=== PATIENT | female | born 1995 | race Caucasian/White ===

== ENCOUNTER 2018-08-27 20:18 | Emergency (ER) | payer MEDICAID ==
[~2018-08-27] VITALS: Ht 165.1 cm; Wt 58.1 kg
[2018-08-27 20:23] VITALS: Ht 165.1 cm; Wt 58.1 kg
[2018-08-27 22:41] VITALS: BP 99/59
== END 2018-08-27 22:41 | disposition home or self-care (01) ==
LOC: ED 20:18
DX: H83.09 Labyrinthitis, unspecified ear (principal); B34.9 Viral infection, unspecified
CPT/HCPCS: J1885; J8597

== ENCOUNTER 2019-05-17 13:12 | Emergency (ER) | payer OTHER, MEDICAID ==
[~2019-05-17] VITALS: Ht 160 cm; Wt 54.9 kg
[2019-05-17 13:25] VITALS: Ht 160 cm; Wt 54.9 kg
[2019-05-17 15:41] LABS: BASOPHIL % 0.4 % (0-2); PLATELET COUNT 263 x10^3mcL (130-400); RED CELL DISTRIBUTION WIDTH 13.4 % (11.5-14.5)
[2019-05-17 15:57] LABS: UA SPECIFIC GRAVITY <=1.005 (1.005-1.035); microscopic required? YES; urine erythrocyte TRACE (NEGATIVE)
[2019-05-17 16:26] VITALS: BP 98/65
== END 2019-05-17 17:44 | disposition home or self-care (01) ==
LOC: ED 13:12
PROVIDERS: Emergency Medicine
DX: O03.9 Complete or unspecified spontaneous abortion without complication (principal)
CPT/HCPCS: 36415